=== PATIENT | female | born 1930 | race African-American/Black ===

== ENCOUNTER 2017-08-13 14:39 | Emergency (ER) | payer OTHER ==
[~2017-08-13 14:39] MED LIST: 1-ME1LIQ PO; ATEN1TAB75 PO; CLOR7.5T3 PO; ENAL20TA81 PO; HYDR-2768 PO; ZOCO40TA PO
[2017-08-13 14:41] VITALS: BP_SYST 216; BP_SYST 26; BP_DIAS 95; PULSE 85; RESP 14; TEMP 98.1; O2SAT 96
[2017-08-13 16:34] VITALS: BP 234/103; PULSE 85; RESP 20; O2SAT 94
[2017-08-13 16:35] VITALS: BP 204/95; PULSE 83; RESP 16; O2SAT 95
[2017-08-13] MEDS ORDERED: CLOR7.5T3 PO (16:39)
[2017-08-13] MEDS ORDERED: HYDR25TA5 PO ×2 (16:39→18:18)
[2017-08-13] MEDS ORDERED: ENAL20TA PO ×2 (16:39→18:18)
[2017-08-13] MEDS ORDERED: SIMV40TA PO ×2 (16:39→18:18)
[2017-08-13] MEDS ORDERED: ATEN100T PO ×2 (16:39→18:18)
[2017-08-13 16:45] LABS: BICARBONATE 31.1 MEQ/L (21.0-32.0); POTASSIUM 4.2 MEQ/L (3.5-5.1)
[2017-08-13 17:00] VITALS: BP 216/91; PULSE 81; RESP 24; O2SAT 95
[2017-08-13] MEDS ORDERED: FUROSEMIDE 40 MG/4 ML VIAL IV PUSH ONE (17:15)
--- NOTE | 2017-08-13 17:37 | RADRPT ---
EXAM DATE/TIME: 08/13/2017 17:18 [place] COMPARISON: CHEST PA & LAT, January 11, 2015, 10:52. INDICATIONS : Short of breath MEDICAL HISTORY : Hypertension. SURGICAL HISTORY : None. ENCOUNTER: Initial ACUITY: 1 day PAIN SCORE: 0/10 LOCATION: chest FINDINGS: PA and lateral views of the chest demonstrate the lungs to be symmetrically aerated without evidence of mass, infiltrate or effusion. The cardiomediastinal contours are unremarkable. The osseous struct ures demonstrate degenerative changes in the left shoulder. CONCLUSION: 1. No acute cardiopulmonary findings. Willis Childs MD on August 13, 2017 at 17:34 Board Certified Radiologist. This report was verified electronically.
[2017-08-13 17:44] VITALS: BP 181/77; PULSE 81; RESP 16; O2SAT 95
--- NOTE | 2017-08-13 18:03 | PD ---
HPI . High blood pressure Chief Complaint: Hypertension Time Seen by Provider: 17:01 Travel History International Travel<30 days: No Contact w/Intl Traveler<30days: No Traveled to known affect area: No History of Present Illness HPI This patient presents with a chief complaint of high blood pressure. She did not really present with any symptoms related to her high blood pressure. She states she just been checking it at home and it has been high. She states that she has been intermittently compliant with her blood pressure medications. She states that she has taken it the past several days. On review of systems, she did admit that she has had increased peripheral edema and shortness of breath. Her blood pressure medicines include atenolol 100 mg daily, enalapril 20 mg daily and HCTZ 25 mg daily. PFSH Past Medical History Heart Rhythm Problems: No Cardiac Catheterization: No Cardiovascular Problems: Yes (HTN) High Cholesterol: Yes Congestive Heart Failure: No Diabetes: No Diminished Hearing: No Hypertension: Yes Immunizations Current: Yes Tetanus Vaccination: Unknown Influenza Vaccination: No ?: Not Menopausal: Yes Past Surgical History AICD: No Appendectomy: Yes Coronary Artery Bypass Graft: No Joint Replacement: No Pacemaker: No Other Surgery: Yes (APPENDECTOMY YEARS AGO.) Social History Alcohol Use: No Tobacco Use: No Substance Use: No Allergies-Medications (Allergen,Severity, Reaction): Coded Allergies: No Known Allergies (Verified Adverse Reaction, Unknown, 08/13/17) Reported Meds & Prescriptions Reported Meds & Active Scripts Active Reported Clorazepate (Clorazepate Dipotassium) 7.5 Mg Tab 7.5 Mg PO DAILY PRN Enalapril (Enalapril Maleate) 20 Mg Tab 20 Mg PO DAILY Atenolol 100 Mg Tab 100 Mg PO DAILY Hydrochlorothiazide 25 Mg Tab 25 Mg PO DAILY Simvastatin 40 Mg Tab 40 Mg PO HS Review of Systems Except as stated in HPI: all other systems reviewed are Neg Eyes: No: Blurred Vision HENT: No: Headaches Cardiovascular: No: Chest Pain or Discomfort Respiratory: Positive: Shortness of Breath Genitourinary: No: Decreased Urinary Output Musculoskeletal: Positive: Edema Physical Exam Narrative GENERAL: Lying on the stretcher in no acute distress. SKIN: warm/dry. HEAD: Normocephalic. Atraumatic. EYES: Pupils equal and round. No scleral icterus. No injection or drainage. ENT: No nasal bleeding or discharge. Mucous membranes pink and moist. NECK: Trachea midline. Full range of motion without pain.. CARDIOVASCULAR: Regular rate and rhythm. Heart sounds normal. RESPIRATORY: No accessory muscle use. Clear to auscultation. Breath sounds equal bilaterally. GASTROINTESTINAL: Abdomen soft. Nontender. Bowel sounds present. Nondistended. MUSCULOSKELETAL: No obvious deformities. 2+ pretibial pitting edema. NEUROLOGICAL: Awake and alert. No obvious cranial nerve deficits. Motor grossly within normal limits. Normal speech. PSYCHIATRIC: Appropriate mood and affect; insight and judgment normal. Data Data Last Documented VS Vital Signs Date Time Temp Pulse Resp B/P (MAP) Pulse Ox O2 Delivery O2 Flow Rate FiO2 08/13/17 17:44 81 16 181/77 (111) 95 Room Air 08/13/17 14:41 98.1 Orders Orders Basic Metabolic Panel (Bmp) (08/13/17 14:56) Chest, Pa & Lat (08/13/17 17:07) B-Type Natriuretic Peptide (08/13/17 17:07) Furosemide Inj (Lasix Inj) (08/13/17 17:15) Labs Laboratory Tests Test 08/13/17 15:50 08/13/17 16:39 Blood Urea Nitrogen 21 MG/DL Creatinine 1.43 MG/DL Random Glucose 109 MG/DL Calcium Level 9.0 MG/DL Sodium Level 147 MEQ/L Potassium Level 4.2 MEQ/L Chloride Level 110 MEQ/L Carbon Dioxide Level 31.1 MEQ/L Anion Gap 6 MEQ/L Estimat Glomerular Filtration Rate 42 ML/MIN B-Type Natriuretic Peptide 514 PG/ML [facility] Medical Decision Making Medical Screen Exam Complete: Yes Emergency Medical Condition: Yes Differential Diagnosis My differential diagnosis of high blood pressure includes but is not limited to "white coat syndrome," anxiety, essential hypertension, hypertensive emergency. Narrative Course This patient presents simply because of high blood pressure. She does admit to peripheral edema and shortness of breath. Last Impressions Chest X-Ray 08/13/177 Signed Impressions: Service Date/Time: Sunday, August 13, 2017 17:18 - CONCLUSION: 1. No acute cardiopulmonary findings. Willis Childs MD BMP Diagram 08/13/17 15:50 Calcium Level 9.0 She has previous renal insufficiency. I have ordered 40 mg of IV Lasix pending her BNP. BNP 514 This patient reports that she is between doctors. She does not yet have an appointment with her new doctor. Her family member who is here with her does not know the status of her prescriptions. Therefore, I have prescribed all of her usual blood pressure medications and her statin. I have added Lasix because of her elevated BNP and peripheral edema. Diagnosis Primary Impression: Hypertension Qualified Codes: I10 - Essential (primary) hypertension Additional Impression: Chronic renal insufficiency Qualified Codes: N18.3 - Chronic kidney disease, stage 3 (moderate) Patient Instructions: Chronic Hypertension (DC), Chronic Kidney Disease (DC), General Instructions Med/Other Pt SpecificInfo: Prescription(s) given Scripts Furosemide (Lasix) 20 Mg Tab 20 MG PO DAILY, #30 TAB 0 Refills Prov: Leti Abraham MD 08/13/17 Enalapril (Enalapril) 20 Mg Tab 20 MG PO DAILY, #30 TAB 0 Refills Prov: Leti Abraham MD 08/13/17 Atenolol (Atenolol) 100 Mg Tab 100 MG PO DAILY for Blood Pressure Management, #30 TAB 0 Refills Prov: Leti Abraham MD 08/13/17 Hydrochlorothiazide (Hydrochlorothiazide) 25 Mg Tab 25 MG PO DAILY, #30 TAB 0 Refills Prov: Leti Abraham MD 08/13/17 Simvastatin (Simvastatin) 40 Mg Tab 40 MG PO HS for Cholesterol Management, #30 TAB 0 Refills Prov: Leti Abraham MD 08/13/17 Disposition: 01 DISCHARGE HOME Condition: Stable Leti Abraham MD Aug 13, 2017 18:03
[2017-08-13] MEDS ORDERED: FURO1TAB62 PO (18:18)
[2017-08-13 18:37] VITALS: BP 178/83
== END 2017-08-13 18:37 | disposition home or self-care (01) ==
LOC: NEPD 14:39
DX: I10 Essential (primary) hypertension (principal); R06.02 Shortness of breath; R60.0 Localized edema; N18.3 Chronic kidney disease, stage 3 (moderate)
CPT/HCPCS: 71020; 80048; 83880; 96374; 99284; J1940